=== PATIENT | male | born 1980 | race Caucasian/White ===

== ENCOUNTER 2016-09-30 19:54 | Emergency (ER) | payer BC ==
[~2016-09-30] VITALS: Ht 180.3 cm; Wt 79.8 kg
[~2016-09-30 19:54] MED LIST: CYCL10TA2 PO; HYDR-971 PO; METH4TAB2 PO
--- NOTE | 2016-09-30 20:16 | RAD ---
PROCEDURE Head CT without contrast. HISTORY Weakness. Slurred speech. TECHNIQUE Computed tomographic images of the head were obtained without contrast. One or more of the following individualized dose reduction techniques were utilized for this examination: 1. Automated exposure control; 2. Adjustment of the mA and/or kV according to patient size; 3. Use of iterative reconstruction technique. COMPARISON None. FINDINGS There is no hemorrhage. There is no mass effect or midline shift. There is no hydrocephalus. There is a tiny hyperdense focus within the left occipital periventricular white matter, likely due to a small parenchymal calcification. The catalan and white matter differentiation pattern is intact. The orbits and visualized portions of the paranasal sinuses mastoid air cells are unremarkable. No calvarial lesion is seen. IMPRESSION No acute intracranial finding. Note is made that MRI is more sensitive for acute infarction. Findings were discussed with Dr. Rodriguez in the ED at 2000 hours on 09/30/2016 according to code stroke protocol. Electronically signed by: Amber Huggins (Sep 30, 2016 20:15:45)
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
[2016-09-30 20:37] LABS: BASO % 1 % (0-3); EOS # 0.1 x10^3/uL (0.0-0.7); EOS % 3 % (0-3); HEMOGLOBIN 15.7 g/dL (13.0-17.5); LYMPH # 1.4 x10^3/uL (1.0-4.8); LYMPH % 39 % (24-48); MEAN CORPUSCULAR HEMOGLOBIN 34 pg (25-35); MEAN CORPUSCULAR HGB CONC 34 g/dL (31-37); MEAN CORPUSCULAR VOLUME 101 fL (79-100); MONO # 0.4 x10^3/uL (0.0-1.1); MONO % 11 % (0-9); NEUT # 1.7 x10^3uL (1.8-7.7); NEUT % 46 % (31-73); PLATELET COUNT 263 x10^3/uL (140-400); RED BLOOD COUNT 4.66 x10^6/uL (4.30-5.70); RED CELL DISTRIBUTION WIDTH 13.8 % (11.5-14.5); WHITE BLOOD COUNT 3.7 x10^3/uL (4.0-11.0)
[2016-09-30 20:51] LABS: ALBUMIN 3.8 g/dL (3.4-5.0); CALCIUM 8.9 mg/dL (8.5-10.1); CREATININE 0.9 mg/dL (0.7-1.3); POTASSIUM 3.7 mmol/L (3.5-5.1); TOTAL BILIRUBIN 0.2 mg/dL (0.2-1.0); TOTAL PROTEIN 7.8 g/dL (6.4-8.2)
[2016-09-30 21:00] VITALS: BP 124/89
--- NOTE | 2016-09-30 21:19 | EKG ---
[address] [address] Test Date: 2016-09-30 Test Time: 20:08:14 Pat Name: SABRINA MEZA Department: Room: Gender: M Drive In Teller: : 1980 Requested By: THADDEUS BARRERA Order Number: [id number] Reading MD: Measurements Intervals [place] Rate: 83 P: 50 UT: 152 QRS: 96 QRSD: 116 T: 30 QT: 362 QTc: 431 Interpretive Statements SINUS RHYTHM RIGHTWARD AXIS INCOMPLETE RIGHT BUNDLE BRANCH BLOCK QRS(T) CONTOUR ABNORMALITY CONSIDER ANTEROSEPTAL MYOCARDIAL DAMAGE POSSIBLY ABNORMAL ECG RI6.01 Unconfirmed report No previous ECG available for comparison
== END 2016-09-30 21:15 | disposition home or self-care (01) ==
LOC: ER 19:54
DX: F10.129 Alcohol abuse with intoxication, unspecified (principal)
CPT/HCPCS: 36415; 70450; 80053; 80320; 82140; 83690; 84443; 85027; 85610; 85730; 93005; G0480; 99285-25

== ENCOUNTER 2019-09-06 20:57 | Emergency (ER) | payer BC, OTHER ==
[~2019-09-06] VITALS: Ht 180.3 cm; Wt 80.8 kg
[~2019-09-06 20:57] MED LIST changes: +CYCL-331 PO; -CYCL10TA2 PO; +HYDR-3165 PO; -HYDR-971 PO
[2019-09-06] MEDS ORDERED: FOLIC ACID 1 MG TABLET PO ONE (21:15)
[2019-09-06] MEDS ORDERED: NEOMY/BACITR/POLYMYXIN OINT PACKET. TP ONE (21:15)
[2019-09-06] MEDS ORDERED: LIDOCAINE 2%/EPI 1:100,000 20 ML VIAL. IJ ONE (21:15)
[2019-09-06] MEDS ORDERED: MVI, ADULT NO.4 WITH VIT K 10 ML, THIAMINE INJ 100 MG in IV RINGERS SOLUTION,LACTATED 1... IV ONE ×3 (21:15)
[2019-09-06] MEDS ORDERED: DIPHTH,PERTUSS(ACELL),TET TOX 0.5 ML DISP.SYRIN. VAX IM ONE (21:30)
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
[2019-09-06 21:46] LABS: BASO % 1 % (0-3); EOS % 1 % (0-3); HEMATOCRIT 47.4 % (39.0-53.0); HEMOGLOBIN 16.4 g/dL (13.0-17.5); LYMPH # 0.9 x10^3/uL (1.0-4.8); LYMPH % 19 % (24-48); MEAN CORPUSCULAR HEMOGLOBIN 36 pg (25-35); MEAN CORPUSCULAR HGB CONC 35 g/dL (31-37); MEAN CORPUSCULAR VOLUME 103 fL (79-100); MONO # 0.3 x10^3/uL (0.0-1.1); MONO % 7 % (0-9); NEUT # 3.2 x10^3uL (1.8-7.7); NEUT % 72 % (31-73); PLATELET COUNT 335 x10^3/uL (140-400); RED BLOOD COUNT 4.63 x10^6/uL (4.30-5.70); RED CELL DISTRIBUTION WIDTH 13.3 % (11.5-14.5); WHITE BLOOD COUNT 4.5 x10^3/uL (4.0-11.0)
[2019-09-06 21:56] LABS: CALCIUM 8.7 mg/dL (8.5-10.1); CREATININE 0.9 mg/dL (0.7-1.3); GFR 93.5; POTASSIUM 4.4 mmol/L (3.5-5.1)
[2019-09-06 22:01] LABS: ALBUMIN 3.8 g/dL (3.4-5.0); ALBUMIN/GLOBULIN RATIO 0.8 (1.0-1.7); MAGNESIUM 2.1 mg/dL (1.8-2.4); TOTAL BILIRUBIN 0.3 mg/dL (0.2-1.0); TOTAL PROTEIN 8.3 g/dL (6.4-8.2)
[2019-09-06] MEDS ORDERED: FAMOTIDINE 20 MG/2 ML VIAL ONE (22:02)
[2019-09-06] MEDS ORDERED: THIAMINE 200 MG/2 ML VIAL. IV ONE (22:02)
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
[2019-09-06 23:16] VITALS: BP 139/84
[2019-09-06] MEDS ORDERED: AMOXICILLIN/K CLAV 875/125MG TABLET. PO ONE (23:30)
[2019-09-06] MEDS ORDERED: IV NORMAL SALINE 1,000ML 1,000 ML IV ONE (23:30)
[2019-09-06] MEDS ORDERED: AMOX1TAB61 PO (23:43)
[2019-09-06 23:46] LABS: BARBITURATES NEG (NEG); BENZODIAZEPINES NEG (NEG); CANNABINOIDS NEG (NEG); COCAINE NEG (NEG); METHADONE NEG (NEG); OPIATES NEG (NEG); PHENCYCLIDINE NEG (NEG)
[2019-09-06 23:49] LABS: AMPHETAMINE/METHAMPHETAMINE NEG (NEG)
[2019-09-06 23:53] LABS: BACTERIA,URINE 0 /HPF (0-FEW); BILIRUBIN,URINE NEG (NEG); CLARITY,URINE CLEAR; COLOR,URINE YELLOW; GLUCOSE,URINE NEG (NEG); NITRITE,URINE NEG (NEG); RBC,URINE 0 /HPF (0-2); SQUAMOUS EPITHELIAL CELL,UR OCC /LPF; UROBILINOGEN,URINE 0.2 mg/dL (0.2 mg/dL); WBC,URINE OCC /HPF (0-4)
== END 2019-09-06 23:58 | disposition home or self-care (01) ==
LOC: ER 20:57
DX: S01.111A Laceration without foreign body of right eyelid and periocular area, initial encounter (principal); S01.21XA Laceration without foreign body of nose, initial encounter; F10.129 Alcohol abuse with intoxication, unspecified; R04.0 Epistaxis; F17.220 Nicotine dependence, chewing tobacco, uncomplicated; Y04.0XXA Assault by unarmed brawl or fight, initial encounter; Y93.89 Activity, other specified; Y92.89 Other specified places as the place of occurrence of the external cause; Y99.8 Other external cause status
CPT/HCPCS: 12014; 36415; 70450; 70486; 72125; 80053; 80307; 81001; 83690; 83735; 85025; 85610; 85730; 96365; 96375; 99285; G0480; J2060; J7120; J7030

== ENCOUNTER → 2020-08-03 | Outpatient (CLI) | payer BC ==
[~2020-08-03] MED LIST changes: +AMOX1TAB61 PO
== END ==
LOC: LAB 13:30
PROVIDERS: ATTEND Family Medicine
DX: R53.83 Other fatigue (principal); R53.81 Other malaise; R53.1 Weakness
CPT/HCPCS: 36415; 86140

== ENCOUNTER 2020-12-05 02:11 | Emergency (ER) | payer BC ==
[~2020-12-05] VITALS: Ht 180.3 cm; Wt 80.8 kg
[2020-12-05] MEDS ORDERED: LIDOCAINE/EPI/TETRACAINE TOPICAL GEL 3 ML. TP ONE (02:20)
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
[2020-12-05] MEDS ORDERED: IBUPROFEN 600 MG TABLET. PO ONE ×2 (02:30→03:00)
[2020-12-05] MEDS ORDERED: ACETAMINOPHEN 500 MG TABLET PO ONE (03:00)
--- NOTE | 2020-12-05 03:00 | RAD ---
XR HAND 3 VIEWS History: Reason: 3rd digit injury - LEFT, BILAT HANDS PAIN, REDNNESS, BRUISING / Spl. Instructions: / History: Technique: 3 views bilateral hands. Comparison: None. Findings: Dislocated third proximal interphalangeal joint with dorsal dislocation of the middle phalanx in rela tion to the proximal phalanx. No acute fracture. Right hand: Prior internal fixation fourth and fifth metacarpals. No dislocation. No fracture. Dorsal hand soft tissue swelling. Impression: 1. Dislocated left third proximal interphalangeal joint. 2. Right dorsal hand soft tissue swelling. Electronically signed by: Kam Martins DO (12/05/2020 2:58 AM) [facility]
[2020-12-05 03:20] VITALS: BP 139/80
== END 2020-12-05 03:30 | disposition home or self-care (01) ==
LOC: ER 02:11
DX: S63.283A Dislocation of proximal interphalangeal joint of left middle finger, initial encounter (principal); S01.81XA Laceration without foreign body of other part of head, initial encounter; F17.220 Nicotine dependence, chewing tobacco, uncomplicated; F10.20 Alcohol dependence, uncomplicated; Y90.9 Presence of alcohol in blood, level not specified; Y08.89XA Assault by other specified means, initial encounter; Y93.89 Activity, other specified; Y92.89 Other specified places as the place of occurrence of the external cause; Y99.8 Other external cause status
CPT/HCPCS: 12013; 26700; 26770; 73130; 99284